=== PATIENT | female | born 1985 | race African-American/Black ===

== ENCOUNTER 2022-07-03 09:19 | Emergency (ER) | payer MEDICAID ==
[~2022-07-03] VITALS: Ht 167.6 cm; Wt 90.9 kg
[2022-07-03] MEDS ORDERED: HYDROCODONE/ACETAMINOPHEN 5-325 MG TABLET PO ONE (09:45)
[2022-07-03] MEDS ORDERED: DOXYCYCLINE HYCLATE 100 MG TABLET PO ONE (11:30)
[2022-07-03] MEDS ORDERED: CefTRIAXone SODIUM 1 GM/VIAL IM ONE (11:30)
[2022-07-03] MEDS ORDERED: LIDOCAINE/PF 1% 2 ML VIAL IM ONE (11:30)
[2022-07-03] MEDS ORDERED: FLUCONAZOLE 150 MG TABLET PO ONE (11:30)
[2022-07-03] MEDS ORDERED: INSULIN REGULAR, HUMAN 100 UNITS/ML SQ ONE (12:15)
[2022-07-03] MEDS ORDERED: DOXY-354 PO (12:22)
[2022-07-03] MEDS ORDERED: METR500 PO (12:22)
[2022-07-03] MEDS ORDERED: HYDR-4723 PO (12:22)
[2022-07-03 13:00] VITALS: BP 130/92
== END 2022-07-03 13:30 | disposition home or self-care (01) ==
LOC: EMS 09:22
DX: N76.0 Acute vaginitis (principal); E11.65 Type 2 diabetes mellitus with hyperglycemia
CPT/HCPCS: 99284; 87205; 87210; 87491; 87591; 81025; 96372; 87070; J0696; J1815; J3490